=== PATIENT | male | born 1985 | race African-American/Black ===

== ENCOUNTER 2020-06-14 18:50 | Emergency (ER) | payer OTHER ==
[2020-06-14] MEDS ORDERED: LIDOCAINE 1% INJ-PF (10 MG/ML) 30 ML SDV INJ ONE (19:48)
--- NOTE | 2020-06-14 20:02 | ER Document Report ---
ED Wound - General Chief Complaint: Laceration Stated Complaint: LACERATION/FACIAL Time Seen by Provider: 06/14/20 19:45 Primary Care Provider: [facility] [Provider Group] - Follow up as needed - HPI Notes: Patient is a 35-year-old male with no medical history who presents with a facial laceration that occurred around 5 PM this evening. Patient states he ran into a squat bar and cut his forehead. He is unsure when his last tetanus shot was. Patient denies loss of consciousness, headache, dizziness, blurred vision, and vomiting. Patient denies any other injuries or complaints. - Related Data Allergies/Adverse Reactions: No Known Allergies Allergy (Unverified 07/06/11 00:11) Past Medical History - General Information source: Patient - Social History Smoking Status: Never Smoker Family History: Reviewed & Not Pertinent - Immunizations Hx Diphtheria, Pertussis, Tetanus Vaccination: Yes Review of Systems - Review of Systems Constitutional: No symptoms reported EENT: No symptoms reported Cardiovascular: No symptoms reported Respiratory: No symptoms reported Gastrointestinal: No symptoms reported Genitourinary: No symptoms reported Male Genitourinary: No symptoms reported Musculoskeletal: No symptoms reported Skin: See HPI Hematologic/Lymphatic: No symptoms reported Neurological/Psychological: No symptoms reported Physical Exam - Vital signs Vitals: Temp Pulse Resp BP Pulse Ox 98.4 F 66 16 126/79 H 97 06/14/20 18:57 06/14/20 18:57 06/14/20 18:57 06/14/20 18:57 06/14/20 18:57 - Notes Notes: PHYSICAL EXAMINATION: GENERAL: Well-appearing, well-nourished and in no acute distress. HEAD: 4 cm laceration to the forehead just between the eyes. Bleeding well controlled. EYES: sclera anicteric, conjunctiva are normal. ENT: Moist mucous membranes. NECK: Normal range of motion LUNGS: Normal work of breathing HEART: 2+ radial pulses bilaterally EXTREMITIES: no pitting or edema. No cyanosis. NEUROLOGICAL: No focal neurological deficits. Moves all extremities spontaneously and on command. PSYCH: Normal mood, normal affect. SKIN: Warm, Dry, normal turgor, no rashes or lesions noted. Course - Re-evaluation Re-evalutation: Patient is a 35-year-old male with no medical history who presents with a laceration to his forehead that occurred just prior to arrival. Vital signs are stable and within normal limits. On exam, 4 cm laceration to the area just between the eyes. Laceration performed without difficulty and patient tolerated well. Tetanus vaccine given today here in the ED. Return precautions and follow-up instructions given. Patient will be discharged home. Patient understands and is agreeable with the plan. - Vital Signs Vital signs: Temp Pulse Resp BP Pulse Ox 98.4 F 66 16 126/79 H 97 06/14/20 18:57 06/14/20 18:57 06/14/20 18:57 06/14/20 18:57 06/14/20 18:57 - Laboratory Results Critical Laboratory Results Reviewed: No Critical Results - Radiology Results Critical Radiology Results Reviewed: No Critical Results Procedures - Laceration/Wound Repair Mid- Face Wound length (cm): 4 Wound's Depth, Shape: Superficial, Irregular Laceration pre-procedure: Sterile PPE donned, Sterile drapes applied, Shur-Clens applied Anesthetic type: 1% Lidocaine Wound explored: Clean Wound Repaired With: Sutures Suture Size/Type: 6:0, Prolene Layer Closure?: No Post-procedure NV exam normal: Yes Complications: No Notes: The wound is 4 cm in length to the mid forehead just between the eyes. The wound was copiously irrigated with normal saline and surgical cleanser. The wound was explored for foreign bodies and none were found. The wound was prepped and draped in the normal sterile fashion. The wound was anesthetized using 1% lidocaine. The edges were reapproximated using 6-0 Prolene. Bleeding was well controlled and the patient tolerated the procedure well. Discharge - Discharge Clinical Impression: Facial laceration Qualifiers: Encounter type: initial encounter Qualified Code(s): S01.81XA - Laceration without foreign body of other part of head, initial encounter Condition: Stable Disposition: HOME, SELF-CARE Instructions: Antibiotic Ointment Protection ([facility]), Laceration Care ([facility]), Tetanus Immunization Given ([facility]) Additional Instructions: Follow up with urgent care, primary care provider or return to the emergency department in 5-7 days for suture removal. Return if the area becomes significa ntly swollen, red, and hot. Referrals: [facility] [Provider Group] - Follow up as needed
[2020-06-14] MEDS ORDERED: DIPH/PERTUSS(ACELL)/TETANUS VAC/PF 0.5 ML SYR (>=10YO) IM ONE (21:04)
[2020-06-14 21:23] VITALS: BP 132/75
== END 2020-06-14 21:23 | disposition home or self-care (01) ==
LOC: ER 18:50
DX: S01.81XA Laceration without foreign body of other part of head, initial encounter (principal); W21.89XA Striking against or struck by other sports equipment, initial encounter; Z23 Encounter for immunization
CPT/HCPCS: 99283; 90471; 90715; 12013; J3490

== ENCOUNTER 2020-06-22 11:18 | Emergency (ER) | payer OTHER ==
[2020-06-22 11:22] VITALS: BP 119/78
--- NOTE | 2020-06-22 11:29 | ER Document Report ---
HPI - HPI Time Seen by Provider: 06/22/20 11:27 Pain Level: 0 Notes: HPI: 35-year-old male presenting for suture removal. States he ran into a bar 7 days ago cutting his forehead. Patient had sutures placed in the emergency department. Denies any complaints with the sutures at this time. PHYSICAL EXAMINATION: There is a wound to the medial aspect of the right eyebrow. Wound edges are reasonably well approximated. 8 sutures are counted. No surrounding erythema. Past Medical History - Social History Smoking Status: Never Smoker Chew tobacco use (# tins/day): No Frequency of alcohol use: None Drug Abuse: None Family History: Reviewed & Not Pertinent - Immunizations Hx Diphtheria, Pertussis, Tetanus Vaccination: Yes Course - Vital Signs Vital signs: Temp Pulse Resp BP Pulse Ox 98.8 F 70 16 119/78 99 06/22/20 11:21 06/22/20 11:21 06/22/20 11:21 06/22/20 11:21 06/22/20 11:21 - Laboratory Results Critical Laboratory Results Reviewed: No Critical Results - Radiology Results Critical Radiology Results Reviewed: No Critical Results Discharge - Discharge Clinical Impression: Visit for suture removal Condition: Stable Disposition: HOME, SELF-CARE Additional Instructions: Continue to apply antibiotic ointment to the area until completely healed. Follow-up with primary care for further evaluation as needed
== END 2020-06-22 11:37 | disposition home or self-care (01) ==
LOC: ER 11:18
DX: S01.81XD Laceration without foreign body of other part of head, subsequent encounter (principal); W22.8XXD Striking against or struck by other objects, subsequent encounter